=== PATIENT | female | born 1965 | race American Indian/Alaskan Native ===

== ENCOUNTER 2017-03-13 18:50 | Emergency (ER) | payer BC ==
[~2017-03-13] VITALS: Ht 172.7 cm; Wt 83.0 kg
[~2017-03-13 18:50] MED LIST: NORCO 5-325 TA1 EACH PO; NORFLEX100 MG PO; PREDNISONE 10 M10 MG PO
[2017-03-13] MEDS ORDERED: NORCO 5-325 TA1 EACH PO (19:30)
[2017-03-13] MEDS ORDERED: VALIUM5 MG PO (19:30)
[2017-03-13] MEDS ORDERED: MOBIC15 MG PO (19:30)
[2017-03-13 19:48] VITALS: BP 110/57
== END 2017-03-13 19:56 | disposition home or self-care (01) ==
LOC: ER 18:50
DX: M62.830 Muscle spasm of back (principal); F17.210 Nicotine dependence, cigarettes, uncomplicated; Z90.722 Acquired absence of ovaries, bilateral; Z90.710 Acquired absence of both cervix and uterus; Z90.49 Acquired absence of other specified parts of digestive tract; Z88.5 Allergy status to narcotic agent

== ENCOUNTER 2018-01-14 16:23 | Emergency (ER) | payer BC ==
[~2018-01-14] VITALS: Ht 175.3 cm; Wt 82.6 kg
[~2018-01-14 16:23] MED LIST changes: +MOBIC15 MG PO; +VALIUM5 MG PO
[2018-01-14 16:31] VITALS: BP 124/76
[2018-01-14] MEDS ORDERED: IBUPROFEN IB200 MG PO (16:34)
[2018-01-14] MEDS ORDERED: NAPROSYN500 MG PO (17:23)
[2018-01-14] MEDS ORDERED: NORFLEX100 MG PO (17:24)
== END 2018-01-14 17:39 | disposition home or self-care (01) ==
LOC: ER 16:23
DX: S29.012A Strain of muscle and tendon of back wall of thorax, initial encounter (principal); F17.210 Nicotine dependence, cigarettes, uncomplicated; Z90.49 Acquired absence of other specified parts of digestive tract; Z90.710 Acquired absence of both cervix and uterus; Z88.5 Allergy status to narcotic agent; W10.8XXA Fall (on) (from) other stairs and steps, initial encounter; Y93.89 Activity, other specified; Y92.89 Other specified places as the place of occurrence of the external cause; Y99.8 Other external cause status

== ENCOUNTER 2019-02-01 13:35 | Emergency (ER) | payer BC ==
[~2019-02-01] VITALS: Ht 172.7 cm; Wt 79.4 kg
[~2019-02-01 13:35] MED LIST changes: +IBUPROFEN IB200 MG PO; +NAPROSYN500 MG PO
[2019-02-01] MEDS ORDERED: NORCO 5-325 TA1 EAC1 PO (14:39)
[2019-02-01] MEDS ORDERED: ZANAFLEX4 MG PO (14:39)
[2019-02-01] MEDS ORDERED: CLIMARA1 EAC2 TRANSDERM (14:43)
[2019-02-01 15:25] VITALS: BP 139/70
== END 2019-02-01 15:25 | disposition home or self-care (01) ==
LOC: ER 13:35
DX: M62.830 Muscle spasm of back (principal); F17.210 Nicotine dependence, cigarettes, uncomplicated; Z88.5 Allergy status to narcotic agent; Z90.710 Acquired absence of both cervix and uterus; Z90.49 Acquired absence of other specified parts of digestive tract; Z90.721 Acquired absence of ovaries, unilateral

== ENCOUNTER 2019-11-05 16:05 | Emergency (ER) | payer BC ==
[~2019-11-05] VITALS: Ht 172.7 cm; Wt 83.9 kg
[~2019-11-05 16:05] MED LIST changes: +CLIMARA1 EAC2 TRANSDERM; +NORCO 5-325 TA1 EAC1 PO; +ZANAFLEX4 MG PO
[2019-11-05 17:01] VITALS: BP 117/66
== END 2019-11-05 17:03 | disposition home or self-care (01) ==
LOC: ER 16:05
DX: S99.911A Unspecified injury of right ankle, initial encounter (principal); M25.511 Pain in right shoulder; F17.210 Nicotine dependence, cigarettes, uncomplicated; Z90.710 Acquired absence of both cervix and uterus; Z90.49 Acquired absence of other specified parts of digestive tract; Z90.722 Acquired absence of ovaries, bilateral; Z88.6 Allergy status to analgesic agent; W22.8XXA Striking against or struck by other objects, initial encounter; Y93.89 Activity, other specified; Y92.89 Other specified places as the place of occurrence of the external cause; Y99.8 Other external cause status